=== PATIENT | male | born 1970 | race Two or more races ===

== ENCOUNTER 2023-01-16 11:24 | Emergency (ER) | payer MEDICAID ==
[~2023-01-16] VITALS: Ht 170.2 cm; Wt 66.8 kg
[2023-01-16] MEDS ORDERED: NAPR500T31 PO (13:29)
[2023-01-16 14:12] VITALS: BP 105/72
== END 2023-01-16 13:59 | disposition home or self-care (01) ==
LOC: ER 11:24
DX: S93.402A Sprain of unspecified ligament of left ankle, initial encounter (principal); F17.210 Nicotine dependence, cigarettes, uncomplicated; W01.0XXA Fall on same level from slipping, tripping and stumbling without subsequent striking against object, initial encounter; Y93.89 Activity, other specified; Y92.89 Other specified places as the place of occurrence of the external cause; Y99.8 Other external cause status
CPT/HCPCS: 73600